=== PATIENT | female | born 2000 | race Caucasian/White ===

== ENCOUNTER → 2020-09-16 07:53 | Outpatient (CLI) | payer BC, SELFPAY ==
--- NOTE | ~2020-09-16 | US_ITS ---
US breast RT complete 09/16/2020 08:19 Indication: Lump in the right breast by clinical examination. Procedure: High-resolution Limited ultrasound of the right breast in the area of palpable concern Comparison: No prior studies for comparison. Findings: At 10:00, 8 cm from the nipple, there is an oval hypoechoic mass measuring 9 x 8 x 7 mm wit h posterior acoustic enhancement and no internal vascularity. Parallel orientation. There is an adjac ent oval hypoechoic mass measuring 5 mm with similar sonographic characteristics. No masses identifie d at the 12:00 position. Impression: 1: Probable benign right breast masses. BI-RADS CATEGORY 3-PROBABLY BENIGN FINDING RECOMMENDATION: Six-month follow-up right breast ultrasound recommended. Reviewed, dictated and finalized at location A. Impression: 1: Probable benign right breast masses. BI-RADS CATEGORY 3-PROBABLY BENIGN FINDING RECOMMENDATION: Six-month follow-up right breast ultrasound recommended.
== END ==
PROVIDERS: Visit Provider Nurse Practitioner
DX: N63.15 Unspecified lump in the right breast, overlapping quadrants (principal)
CPT/HCPCS: 76641

== ENCOUNTER → 2021-05-07 09:47 | Outpatient (CLI) | payer BC, SELFPAY ==
--- NOTE | ~2021-05-07 | US_ITS ---
EXAMINATION: US breast RT limited HISTORY: Six-month follow-up for probably benign right breast masses TECHNIQUE: Targeted ultrasound is performed in the upper outer quadrant of the right breast FINDINGS: 8mm by 5 mm oval, circumscribed, parallel, hypoechoic mass with no posterior features or in ternal vascularity is seen at the 10:00 location 8 cm from the nipple which appears stable to slightl y decreased in size. An adjacent 4 mm x 2 mm mass with similar sonographic features has decreased in size. IMPRESSION: Right breast masses, stable to slightly decreased in size, probably benign complicated cysts. Follow- up targeted ultrasound in six months is recommended. BI-RADS category 3, probably benign findings. Reviewed, dictated and finalized at location A. E MAKER IMPRESSION: Right breast masses, stable to slightly decreased in size, probably benign comp licated cysts. Follow-up targeted ultrasound in six months is recommended. BI-RADS category 3, probably benign findings.
== END ==
PROVIDERS: Visit Provider Nurse Practitioner
DX: N63.10 Unspecified lump in the right breast, unspecified quadrant (principal); R92.8 Other abnormal and inconclusive findings on diagnostic imaging of breast
CPT/HCPCS: 76642